=== PATIENT | female | born 1995 | race African-American/Black ===

== ENCOUNTER 2022-05-04 22:27 | Emergency (ER) | payer OTHER ==
[2022-05-04 23:12] LABS: HEMOGLOBIN 12.7 gm/dl (12.3-15.3); RED BLOOD COUNT 4.01 M/UL (4.00-5.10); WHITE BLOOD COUNT 7.7 K/UL (4.5-11.0)
[2022-05-04 23:38] LABS: BUN/CREATININE RATIO 7 (0-10)
[2022-05-05] MEDS ORDERED: VISTARIL25 MG PO ×2 (03:36→03:57)
[2022-05-05] MEDS ORDERED: XANAX2 MG PO ×2 (03:56→04:31)
== END 2022-05-05 04:33 | disposition home or self-care (01) ==
LOC: ER1 22:27
PROVIDERS: Physician Assistant
DX: F41.9 Anxiety disorder, unspecified (principal); R07.9 Chest pain, unspecified; Z51.81 Encounter for therapeutic drug level monitoring
CPT/HCPCS: 71045; 80053; 82550; 82553; 83880; 84484; 85025; 85379; 85610; 85730; 93005; 99285